=== PATIENT | female | born 1965 | race Hispanic/Latino ===

== ENCOUNTER → 2018-08-20 | Day surgery (SDC) | payer OTHER ==
[2018-08-14 10:55] LABS: BASOPHILS % 0.6 % (0.0-1.0); EOSINOPHILS # (AUTO) 0.7 (0.0-0.4); EOSINOPHILS % 13.8 % (0.0-6.0); HEMATOCRIT 40.8 % (34.2-44.1); HEMOGLOBIN 13.2 g/dL (12.0-16.0); LYMPHOCYTES # (AUTO) 1.4 (1.0-3.2); LYMPHOCYTES % 27.6 % (18.0-39.1); MEAN CORPUSCULAR HEMOGLOBIN 29.1 pg (28-32); MEAN CORPUSCULAR HGB CONC 32.4 g/dL (31-35); MEAN CORPUSCULAR VOLUME 90.1 fL (81-99); MONOCYTES # (AUTO) 0.5 (0.2-0.8); MONOCYTES % 8.6 % (4.4-11.3); NEUTROPHILS # (AUTO) 2.6 (2.1-6.9); NEUTROPHILS % 49.2 % (38.7-80.0); PLATELET COUNT 185 x10e3/uL (140-360); RED BLOOD COUNT 4.53 x10e6/uL (3.6-5.1); RED CELL DISTRIBUTION WIDTH 13.2 % (11.7-14.4)
[~2018-08-20] MED LIST: AFRIN30 ML; FENTANYL CITRATE/PF 100MCG/2 ML INJ ONE; MIDAZOLAM HCL 2 MG/2 ML VIAL ONE; PRO AIR INH; PROPOFOL IV EMULSION 10 MG/ML 50 ML VIAL ONE; SYMBICORT 16010.2 GM INH; ZYRTEC10 M3 PO
[2018-08-20 08:40] VITALS: BP 128/88
== END | disposition home or self-care (01) ==
LOC: OR 05:51
PROVIDERS: ATTEND Internal Medicine Gastroenterology
DX: Z12.11 Encounter for screening for malignant neoplasm of colon (principal); K63.5 Polyp of colon; Z71.3 Dietary counseling and surveillance; E66.9 Obesity, unspecified; J45.909 Unspecified asthma, uncomplicated; F41.9 Anxiety disorder, unspecified; Z88.8 Allergy status to other drugs, medicaments and biological substances; Z01.810 Encounter for preprocedural cardiovascular examination; Z01.812 Encounter for preprocedural laboratory examination; Z68.39 Body mass index [BMI] 39.0-39.9, adult; Z80.0 Family history of malignant neoplasm of digestive organs
CPT/HCPCS: 36415; 45385; 85025; 93005; J2250